=== PATIENT | male | born 1980 | race Two or more races ===

== ENCOUNTER → 2017-11-30 | Outpatient (CLI) | payer OTHER ==
--- NOTE | 2017-11-30 18:44 | Diagnostic Imaging Report ---
EXAMINATION: MRI of the cervical spine without contrast HISTORY: Neck pain for the last 3 months COMPARISON: None available TECHNIQUE: Sagittal T1, T2, STIR; axial T2, gradient echo. FINDINGS: Curvature: Normal lordosis. Vertebrae: No evidence of neoplasm, infection, or fracture. Foramen magnum: No mass, Chiari malformation, or basilar invagination. Spinal Cord: Normal size and signal intensity. Soft Tissues: Unremarkable. Degenerative changes: C1-C2: Unremarkable. C2-C3: Unremarkable. C3-C4: Mild uncovertebral hypertrophy. Moderate right foraminal stenoses. C4-C5: Small disc osteophyte complex formation, mild uncovertebral and facet arthrosis. Moderate left foraminal stenosis. C5-C6: Disc osteophyte complex formation, bilateral uncovertebral and facet arthrosis. Mild to moderate bilateral foraminal stenoses. C6-C7: Disc osteophyte complex formation, bilateral uncovertebral and facet arthrosis. Moderate bilateral foraminal stenoses C7-T1: Bilateral facet arthrosis without stenoses IMPRESSION: 1. Moderate degenerative foraminal stenosis on the right at C3-C4 and on the left at C4-C5. 2. Mild to moderate degenerative bilateral foraminal stenosis at C5-C6 and C6-C7. 3. Mild multilevel spondylosis otherwise without significant spinal canal stenosis. Signed by: Dr. Poornima Villela M.D. on 11/30/2017 6:40 PM
== END ==
LOC: MRI 16:17
PROVIDERS: ATTEND Psychiatry & Neurology Neurology
DX: M54.2 Cervicalgia (principal)
CPT/HCPCS: 72141